=== PATIENT | male | born 1970 | race Two or more races ===

== ENCOUNTER → 2017-03-26 | Outpatient (CLI) | payer SELFPAY ==
--- NOTE | 2017-03-26 18:00 | RADRPT ---
PROCEDURE: Left knee radiographs. CLINICAL INDICATION: Left knee pain. TECHNIQUE: Four views. Weight bearing. Frontal, lateral, oblique, and patellar view. COMPARISON: No prior studies are available for comparison. FINDINGS: There is no fracture or dislocation. The soft tissues are normal. There are degenerative changes with osteophytes arising from all 3 joint compartment margins. There is medial joint compartment narrowing, subarticular sclerosis, subarticular cysts, and marked deform ity. There is no lytic or blastic lesion. There is no radiopaque foreign body. IMPRESSION: 1. Severe degenerative changes of the left knee predominately involving the medial joint compartmen t. 2. No acute abnormality. RPTAT: QQ .Robby Osman MD, MD Date Time Electronically viewed and signed by .Robby Osman MD, on 03/26/2017 17:59 .R/
--- NOTE | 2017-03-27 06:37 | HKNOTE ---
DATE OF SERVICE: 03/26/2017 CHIEF COMPLAINT: Left knee pain. HISTORY OF PRESENT ILLNESS: This is a 46-year-old male complaining of severe pain in the left knee. He states that he had an injury at work several months ago. He works at [employer]. He hit his knee against a pipe. The pain is constant and severe. He has pain mostly with ambulation. He has difficulty navigating stairs. There are no alleviating factors. He has not had any previou s treatment. He denies any hip or back pain. He does not use any assist devices. He has no other complaints. GAIT: Antalgic gait. No use of assist devices. LEFT KNEE: Varus deformity. Tender over the medial lateral joint line. 0 to 110 degrees painful w ith range of motion. Crepitus with passive and active range of motion. Stable to varus valgus stre ss. Negative Jennifer. Negative anterior drawer. Negative posterior drawer. MOTOR STRENGTH: 5/5 peroneals, hamstrings, quadriceps, tibialis anterior gastroc soleus. DIAGNOSTIC DATA: X-rays left knee: Three views of the left knee demonstrate the endstage tricompar tmental arthritis of the left knee. There is a defect of the medial tibial plateau. IMPRESSION: A 46-year-old male with left knee tricompartmental osteoarthritis. PLAN: I discussed treatment options with Mr. Garcia. After obtaining consent, the left knee was p repped and draped in the usual sterile fashion. A mixture of 1 mL of Depo-Medrol along with 3 mL of 1% lidocaine was injected into the lateral portal under sterile technique. There were no complicat ions. He tolerated the procedure well. He was advised to ice and elevate the left knee. He was ad vised to take ibuprofen for pain control. He will follow up within 3 months. I explained to Mr. Garcia that he will require a left total knee arthroplasty in the future given t he extent of his arthritis. Dictated By: ZAYNAB TAVAREZ/RAFY Conf#: [id number] DID#: [id number]
== END | disposition home or self-care (01) ==
LOC: HKI 14:38
PROVIDERS: ATTEND Orthopaedic Surgery Adult Reconstructive Orthopaedic Surgery
DX: M17.12 Unilateral primary osteoarthritis, left knee (principal)
CPT/HCPCS: 20610; 73564; G0463; J1030